=== PATIENT | male | born 1945 | race Caucasian/White ===

== ENCOUNTER 2017-11-23 20:17 | Emergency (ER) | payer MEDICARE, MEDICAID ==
--- NOTE | 2017-11-23 23:00 | ED Physician Chart ---
ED Chief Complaint/HPI - Patient Information Date Seen:: 11/23/17 Time Seen:: 22:40 Chief Complaint:: seizures History of Present Illness:: 11:00 this morning patient fell on the floor and had shaking lasting about 1 minute. Right after the first seizure he had a shorter about 30 seconds long seizure. Allergies:: Allergies Allergy/AdvReac Type Severity Reaction Status Date / Time kiwi Allergy Verified 11/23/17 20:40 Vitals:: Vital Signs - 8 hr 11/23/17 20:41 Temp 98.8 F HR 84 RR 17 BP 132/69 O2 Sat % 97 Historian:: Patient, Family Member Review:: Nurse's Note Reviewed ED Review of Systems - Review of Systems General/Constitutional: No fever, No chills Skin: No skin lesions Head: No headache Eyes: No loss of vision ENT: No earache Neck: No neck pain Cardio Vascular: No chest pain Pulmonary: No SOB GI: No nausea, No vomiting, No diarrhea G/U: No dysuria Musculoskeletal: No bone or joint pain Endocrine: No polyuria Hematopoietic: No bruising Allergic/Immuno: No urticaria Neurological: No syncope, Seizure ED Past Medical History - Past Medical History Past Medical History: HTN, DM, Seizures, Other (patient's had seizures since he was 8 years old) Family History: Heart disease Social History: Non Smoker, No Alcohol Surgical History: Cholecystectomy, other (ankle and back) Psychiatricy History: None Medication: Reviewed Family Medical History - Family Member Mother Ethnicity: Non- ED Physical Exam - Physical Examination General/Constitutional: Well-developed, well-nourished, Alert, No distress Other Gen/Cons comments:: Normally alert Head: Atraumatic Eyes: Lids, conjuctiva normal, PERRL Skin: Nl inspection ENMT: External ears, nose nl Neck: No nuchal rigidity Respiratory: Nl effort/Exclusion, Clear to Auscultation Cardio Vascular: RRR GI: No tenderness/rebounding/guarding, No organomegaly : No CVA tenderness Extremities: Normal digits & nails Neuro/Psych: No focal deficits ED Labs/Radiology/EKG Results - Lab Results Results: Laboratory Results - last 24 hr 11/23/17 11/23/17 23:00 23:00 WBC 8.6 RBC 3.86 Hgb 13.3 Hct 38.4 L MCV 99.4 H MCH 34.4 H MCHC Differential 34.5 RDW 12.5 Plt Count 272 MPV 7.2 Neutrophils % 64.9 Lymphocytes % 24.5 Monocytes % 6.4 Eosinophils % 0.8 Basophils % 3.4 H Sodium 136 Potassium 3.5 Chloride 103 Carbon Dioxide 23.2 Anion Gap 13.3 BUN 7 Creatinine 0.9 Est GFR ( Amer) TNP Est GFR (Non-Af Amer) TNP BUN/Creatinine Ratio 7.8 Glucose 136 H Calcium 9.2 Carbamazepine 7.0 ED Assessment - Assessment General Assessment: I offered to call 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 Patient decided he will follow-up with his private physician and try to get a referral to a neurologist which is what he really needs. I assumed the neurologist will order an MRI of the brain which is better than a CAT scan. ED Septic Shock - . Is Septic Shock (SBP<90, OR Lactate>4 mmol\L) present?: No - <6hrs of presentation: Vital Signs: Vital Signs - 8 hr 11/23/ 20:41 Temp 98.8 F HR 84 RR 17 BP 132/69 O2 Sat % 97 ED Reassessment (Disposition) - Reassessment Reassessment Condition:: Improved - Diagnosis Diagnosis:: Seizures 2; known seizure disorder - Aftercare/Follow up Instructions Aftercare/Follow-Up Instructions:: Refer to Discharge Instructions - Patient Disposition Discharge/Transfer:: Home Condition at Disposition:: Stable, Improved
[2017-11-23 23:11] LABS: % BASOPHILS 3.4 % (0.0-2.0); % EOSINOPHILS 0.8 % (0.0-5.0); % LYMPHOCYTES 24.5 % (20.0-50.0); % MONOCYTES 6.4 % (2.0-10.0); % NEUTROPHILS 64.9 % (40.0-80.0); BASOPHILE ABSOLUTE 0.3 Th/cumm (0-0.2); EOSINOPHILE ABSOLUTE 0.1 Th/cmm (0.1-0.4); HEMATOCRIT 38.4 % (41.0-60); HEMOGLOBIN 13.3 gm/dL (12-16); LYMPHOCYTE ABSOLUTE 2.1 Th/cmm (1.5-3.0); MEAN CELL VOLUME 99.4 fl (80-99); MEAN CORPUSCULAR HEMOGLOBIN 34.4 pg (27.0-31.0); MEAN CORPUSCULAR HGB CONC 34.5 pg (28.0-36.0); MEAN PLATELET VOLUME 7.2 fl; MONOCYTE ABSOLUTE 0.6 Th/cmm (0.3-1.0); NEUTROPHILE ABSOLUTE 5.5 Th/cmm (1.8-8.0); PLATELET COUNT 272 Th/cmm (150-400); RED BLOOD COUNT 3.86 Mil/cmm (3.80-5.80); RED CELL DISTRIBUTION WIDTH 12.5 % (11.5-20.0); WHITE BLOOD COUNT 8.6 Th/cmm (4.8-10.8)
[2017-11-23 23:31] LABS: ANION GAP 13.3 (7.0-16.0); BUN - UREA NITROGEN 7 mg/dL (7-25); CALCIUM SERUM 9.2 mg/dL (8.6-10.3); CARBON DIOXIDE 23.2 mEq/L (21.0-31.0); CHLORIDE 103 mEq/L (98-107); CREATININE - SERUM 0.9 mg/dL (0.7-1.3); GLUCOSE 136 mg/dL (70-105); POTASSIUM SERUM 3.5 mEq/L (3.5-5.1); SODIUM SERUM 136 mEq/L (136-145)
== END 2017-11-24 00:25 | disposition home or self-care (01) ==
LOC: ER 20:17
DX: G40.909 Epilepsy, unspecified, not intractable, without status epilepticus (principal); I10 Essential (primary) hypertension; E11.9 Type 2 diabetes mellitus without complications; Z91.09 Other allergy status, other than to drugs and biological substances; Z90.49 Acquired absence of other specified parts of digestive tract
CPT/HCPCS: 36415-UA; 80048-TC; 80156-TC; 85025-TC; Z7502